=== PATIENT | male | born 1950 | race Caucasian/White ===

== ENCOUNTER 2016-10-07 12:38 | Emergency (ER) | payer MEDICARE, MEDICAID ==
[2016-10-07] MEDS ORDERED: NITROGLYCERIN 0.4 MG 25 EA TAB SL ONE ×2 (12:45→12:49)
[2016-10-07] MEDS ORDERED: ASPIRIN TABLET 325 MG TAB PO ONE (12:49)
[2016-10-07] MEDS ORDERED: SODIUM CHLORIDE 0.9% (FLUSH) 10 ML SYG IV PRN (12:49)
--- NOTE | 2016-10-07 13:02 | ED.PDOC ---
History of Present Illness - General Chief Complaint: Chest Pain/IN Stated Complaint: chest pain, shortness of breath Time Seen by Provider: 10/07/16 12:48 Source: patient Exam Limitations: other - PT IS A POOR HISTORIAN - History of Present Illness Initial Comments: PT REPORTS 8/10 CHEST PAIN THAT BEGAN WHILE PT WAS ATTEMPTING TO ENTER DIALYSIS BUILDING TODAY. PAIN WAS ASSOCIATED WITH SOB. PT REPORT PAIN IMPROVED WITH REST AND EN ROUTE TO HOSPITAL. PT RATES PAIN AT 4/10 CURRENTLY. PT REPORTS FREQUENT SIMILAR EPISODES WITH EXERTION. STAFF AT DIALYSIS CENTER STATES THAT PT WAS DISCHARGED FROM [facility] IN [place] ON 10/02 AND DIAGNOSES WITH NON RUPTURED AAA, AND PE. OLD RECORDS REVIEWED HOWEVER PT HAS NOT BEEN TO THIS FACILITY BEFORE. Severity/Quality: moderate Location: substernal Chest Pain Radiation: no radiation Activities at Onset: other - EXERTION Prior Chest Pain/Cardiac Workup: other - UNKNOWN, PT STATES HE DOES NOT HAVE A INTERVENTION MANAGER Improving Factors: immobilization Worsening Factors: movement Nitro Today/Relief: no nitro taken today - PT REFUSED Aspirin Treatment Today: provided by EMS Associated Symptoms: shortness of breath Allergies/Adverse Reactions: Allergies Morphine Allergy (Verified 10/07/16 13:03) Review of Systems - Review of Systems Constitutional: Denies: chills, fever EENTM: Denies: ear pain, throat pain Respiratory: States: short of breath. Denies: cough Cardiology: States: see HPI, chest pain. Denies: palpitations Gastrointestinal/Abdominal: Denies: abdominal pain, diarrhea Genitourinary: Denies: discharge, pain Musculoskeletal: Denies: back pain, joint swelling Skin: Denies: lumps, rash Neurological: States: no symptoms reported Endocrine: States: no symptoms reported Hematologic/Lymphatic: States: no symptoms reported Family Medical History - Family History Mother Family History: Unknown Physical Exam - Physical Exam General Appearance: Alert, No apparent distress, Unkempt Eyes, Ears, Nose, Throat Exam: normal ENT inspection Neck: non-tender, full range of motion Respiratory: chest non-tender, rhonchi Cardiovascular/Chest: tachycardia, systolic murmur Gastrointestinal/Abdominal: non tender, soft Extremity: other - PARALYSIS OF BILATERAL LOWER EXTREMITIES Neurologic: alert, normal mood/affect, oriented x 3 Skin Exam: normal color, warm/dry Progress - Progress Progress: 10/07/16 13:55 UNABLE TO OBTAIN BLOOD VIA IV LINE PLACEMENT. LEFT FEMORAL STICK PERFORMED BY ME UNDER ULTRASOUND GUIDANCE. 10/07/16 14:48 PT RESTING COMFORTABLY, HR AND BP SIGNIFICANTLY IMPROVED AFTER 20MG IV LABETALOL. HR IN THE 80S AND BP 140/100. 10/07/16 14:50 LABS SIGNIFICANT FOR CHRONIC RENAL DISEASE AND HYPERKALEMIA, CXR SHOWS OPACIFICATION ON LEFT WITH LARGE LEFT PLEURAL EFFUSION. WILL PLAN TO TRANSFER TO [place] WHERE [facility] AND [facility] REPAIRER AND INTERVENTION MANAGER ARE PT WILL NEED INPATIENT DIALYSIS AND CARDIAC EVALUATION. TO MY KNOWLEDGE PT DOES NOT APPEAR TO HAVE BEEN STARTED ON BLOOD THINNER FOR RECENT PE DIAGNOSIS. - Results/Orders Results/Orders: 10/07/16 12:49 IV Care:Saline Lock per Protoc QSHIFT Telemetry .ONCE Sodium Chloride 0.9% (Flush) [Saline Flush Syringe] 10 ml IV PRN PRN EKG Stat Pulse Ox Stat 10/07/16 12:50 EKG Assessment ONCE Pulse Oximetry Assessment DAILY Laboratory Results - last 24 hr 10/07/16 13:50 WBC 9.6 RBC 3.80 L Hgb 12.2 L Hct 37.3 L MCV 98.0 H MCH 32.1 H MCHC 32.8 L RDW 20.1 H Plt Count 74 L MPV 9.0 Absolute Neuts (auto) 7.80 H Absolute Lymphs (auto) 1.00 Absolute Monos (auto) 0.70 Absolute Eos (auto) 0.00 Absolute Basos (auto) 0.10 Neutrophils % 81.4 H Lymphocytes % 10.0 L Monocytes % 7.6 Eosinophils % 0.3 L Basophils % 0.7 PT 12.1 INR 1.070 PTT (SP) 26.0 Sodium 136 Potassium 5.3 H Chloride 106 Carbon Dioxide 18 L Anion Gap 17.3 BUN 64 H Creatinine 5.98 H BUN/Creatinine Ratio 10.7 Random Glucose 81 Serum Osmolality 289.3 Calcium 7.7 L Magnesium 1.6 L Creatine Kinase 30 L CK-MB (CK-2) 2.4 CK-MB (CK-2) % Not Reportable Troponin I < 0.02 - EKG/XRAY/CT EKG: Tachy - 117BPM, NL INTERVALS, NL AXIS, no ST T wave changes - NO OLD EKG FOR COMPARISON. Departure - Departure Clinical Impression: Chest pain, ESRD (end stage renal disease) on dialysis, Hyperkalemia, Uncontrolled hypertension, Tachycardia, Pleural effusion, History of pulmonary embolus (PE), History of abdominal aortic aneurysm Time of Disposition: 14:55 Disposition: Transfer to Hospital Condition: Fair Departure Forms: ED Discharge - Pt. Copy, Patient Portal Self Enrollment Transfer to Outside Facility - Transfer Information Accepting Facility: [facility] Reason for Transfer: required specialist not available - [facility] REPAIRER AND INTERVENTION MANAGER
--- NOTE | 2016-10-07 13:39 | RAD ---
EXAM DESCRIPTION: Chest,1 View CLINICAL HISTORY: 66 years Male, chest pain COMPARISON: 10/26/2015 IMPRESSION: Multiple lumen right-sided central venous catheter is present with its tip over the cavoatrial junction. The heart is enlarged with central pulmonary vascular congestion. There is diffuse airspace opacification throughout most of the left lung consistent with severe atelectasis or consolidation. Associated large left pleural effusion. Mild subsegmental right basilar atelectasis or consolidation. No pneumothorax. No acute osseous abnormality. Electronically signed by: Louis Salvador MD 10/07/2016 1:39 PM CDT
[2016-10-07] MEDS ORDERED: LABETALOL INJ 5 MG/ML VIAL IV ONE (13:50)
[2016-10-07 14:07] VITALS: TEMP 98
[2016-10-07] MEDS ORDERED: SOD POLYSTYRENE SULFONATE 15 GM/60 ML BTTL PO ONE (14:57)
[2016-10-07 15:30] VITALS: BP 155/97; O2SAT 95
== END 2016-10-07 15:30 | disposition short-term general hospital (02) ==
LOC: ER 12:38
DX: R07.9 Chest pain, unspecified (principal); R00.0 Tachycardia, unspecified; I12.0 Hypertensive chronic kidney disease with stage 5 chronic kidney disease or end stage renal disease; N18.6 End stage renal disease; Z99.2 Dependence on renal dialysis; E87.5 Hyperkalemia; J90 Pleural effusion, not elsewhere classified; I71.4 Abdominal aortic aneurysm, without rupture; Z86.711 Personal history of pulmonary embolism